=== PATIENT | female | born 1995 | race Caucasian/White ===

== ENCOUNTER 2017-10-20 14:26 | Emergency (ER) | payer SELFPAY ==
[2017-10-20 14:33] VITALS: BP 126/93; PULSE 84; TEMP 99; BMI 24.1
--- NOTE | 2017-10-20 14:33 | PDOC ---
Rapid Medical Evaluation Chief Complaint: Vaginal Bleeding Time Seen by Provider: 10/20/17 14:30 Medical Evaluation: Allergies Allergy/AdvReac Type Severity Reaction Status Date / Time No Known Allergies Allergy Verified 10/20/17 14:27 10/20/17 14:31 I have performed a brief in-person evaluation of this patient. The patient presents with a chief complaint of: vaginal bleeding since yesterday , used adult diapers and have used 7 since yesterday. No abd pain, n/v/f/c. H/o irregular menses, gastritis Pertinent physical exam findings:well bolivar and stable I have ordered the following: upreg,cbc The patient will proceed to the ED for further evaluation
[2017-10-20 14:52] LABS: BASO % 0.7 % (0-2.0); EOS % 3.5 % (0-4.5); HEMATOCRIT 42.8 % (32.4-45.2); HEMOGLOBIN 14.3 GM/dL (10.7-15.3); LYMPH % 35.9 % (8-40); MCH 31.6 pg (25.7-33.7); MCHC 33.5 g/dl (32.0-36.0); MEAN CELL VOLUME 94.3 fl (80-96); MEAN PLT VOLUME 8.4 fl (7.5-11.1); MONO % 11.3 % (3.8-10.2); NEUT % 48.6 % (42.8-82.8); PLATELET COUNT 262 K/MM3 (134-434); RBC 4.53 M/mm3 (3.60-5.2); RDW 12.1 % (11.6-15.6); WHITE BLOOD COUNT 4.4 K/mm3 (4.0-10.0)
--- NOTE | 2017-10-20 15:22 | PDOC ---
History of Present Illness - General Chief Complaint: Vaginal Bleeding Stated Complaint: VAGINAL BLEED Time Seen by Provider: 10/20/17 14:30 History Source: Patient Exam Limitations: No Limitations - History of Present Illness Initial Comments: CHIEF COMPLAINT: 22 y/o afebrile female with PMH of amennorhea c/o heavy vaginal bleeding. HISTORY OF PRESENT ILLNESS: The patient admits she usually gets her period once per year. She started with vaginal bleeding yesterday and states she's been soaking through adult diapers and chucks, ruining her clothing. She does have some minimal abdominal cramping and does admit to passage of small clots. She states she feels weak. She denies f/c, n/v/d, CP, SOB, dizziness. She has been seeing a pediatric Financial Analysis Manager for her issue but never had a resolution. Vital signs on arrival are within normal limits. REVIEW OF SYSTEMS: GENERAL/CONSTITUTIONAL: No fever/chills. +weak. No weight change. HEAD, EYES, EARS, NOSE AND THROAT: No change in vision. No ear pain or discharge. No sore throat. CARDIOVASCULAR: No chest pain or shortness of breath. RESPIRATORY: No cough, wheezing, or hemoptysis. GASTROINTESTINAL: +minimal abdominal cramping. No nausea, vomiting, diarrhea. GENITOURINARY: No dysuria, frequency, or change in urination. MUSCULOSKELETAL: No joint or muscle swelling or pain. No neck or back pain. SKIN: No rash or easy bruising. NEUROLOGIC: No headache, vertigo, loss of consciousness, or loss of sensation. PHYSICAL EXAM: GENERAL: The patient is awake, alert, and fully oriented, in no acute distress. HEAD: Normal with no signs of trauma. ENT: Pupils equal, round and reactive to light, extraocular movements intact, sclera anicteric, conjunctiva clear. Neck supple. LUNGS: Clear to auscultation bilaterally. Normal excursion. No respiratory distress or use of accessory muscles. CV: RRR, S1/S2, no MRG. Cap refill < 2 sec. ABDOMEN: Soft, non-distended, non-tender even to deep palpation, no hepatomegaly or splenomegaly, no masses. VAGINAL: DEFERRED EXTREMITIES: Normal range of motion, no edema. NEUROLOGICAL: Normal speech, normal gait. CN II-XII grossly intact. PSYCH: Normal mood, normal affect. SKIN: Warm, dry, normal turgor, no rashes or lesions noted. Past History - Past Medical History Allergies/Adverse Reactions: Allergies Allergy/AdvReac Type Severity Reaction Status Date / Time No Known Allergies Allergy Verified 10/20/17 14:27 Home Medications: Ambulatory Orders NK [No Known Home Medication] 10/20/17 COPD: No - Immunization History Immunization Up to Date: Yes - Suicide/Smoking/Psychosocial Hx Smoking History: Never smoked *Physical Exam - Vital Signs Last Vital Signs Temp Pulse Resp BP Pulse Ox 99.0 F 84 20 126/93 100 10/20/17 14:28 10/20/17 14:28 10/20/17 14:28 10/20/17 14:28 10/20/17 14:28 ED Treatment Course - LABORATORY CBC & Chemistry Diagram: 10/20/17 14:45 - ADDITIONAL ORDERS Additional order review: Laboratory Results 10/20/17 14:45 Urine HCG, Qual Negative 10/20/17 14:45 RBC 4.53 MCV 94.3 MCHC 33.5 RDW 12.1 MPV 8.4 Neutrophils % 48.6 Lymphocytes % 35.9 Monocytes % 11.3 H Eosinophils % 3.5 Basophils % 0.7 - RADIOLOGY Radiology Studies Ordered: Category Date Time Status TRANSVAGINAL ULTRASOUND US [US] Stat Ultrasound 10/20/17 15:13 Ordered Medical Decision Making - Medical Decision Making A/P: 22 y/o female with heavy vaginal bleeding. Plan is as follows: 1. labs 2. hcg 3. transvaginal ultrasound Transvaginal Ultrasound IMPRESSION: mild nonspecific endometrial thickening is noted which may be physiologic. A small amount of fluid is noted within the uterine cavity presumably representing blood. A nonspecific 2.7x1.5cm hypoechoic structure is seen within the right ovary possibly representing a hemorrhagic cyst. Correlation with 6 week follow up sonography is suggested to document resolution and lack of underlying pathology. Gave patient her results. Provided a copy of her ultrasound and referral to Dr. Chase. Suggested she f/u with Fede as soon as possible and return to the ER with any worsening or concerning symptoms. The patient verbalizes understanding of all instructions, has no further questions and is awaiting discharge. *DC/Admit/Observation/Transfer Diagnosis at time of Disposition: Menorrhagia Qualifiers: Menorrahagia type: with irregular cycle Qualified Code(s): N92.1 - Excessive and frequent menstruation with irregular cycle - Discharge Dispostion Disposition: HOME Condition at time of disposition: Good - Referrals Referrals: Kelly Chase MD [Staff Physician] - - Patient Instructions Printed Discharge Instructions: DI for Menorrhagia Additional Instructions: Discharge Instructions: -Your blood work was normal -Your uterus shows a possible ovarian cyst; you will need a repeat ultrasound in 6 weeks. -Please call Dr. Chase next week and schedule follow up appointment for within 2 weeks -Return to the ER with any worsening or concerning symptoms - Post Discharge Activity
== END 2017-10-20 17:29 | disposition home or self-care (01) ==
LOC: JERFT 14:26
DX: N92.1 Excessive and frequent menstruation with irregular cycle (principal); N83.201 Unspecified ovarian cyst, right side
CPT/HCPCS: 36415; 76830-TC; 84703; 85025; 99281-25

== ENCOUNTER 2018-06-21 21:57 | Emergency (ER) | payer OTHER ==
[2018-06-21 22:01] VITALS: BP 131/71; PULSE 79; TEMP 97.9; BMI 22.6
[2018-06-21] MEDS ORDERED: ONDANSETRON 4 MG/2 ML VIAL IVPUSH ONE (22:25)
[2018-06-21] MEDS ORDERED: ACETAMINOPHEN 1000 MG/100 ML VIAL (NON FORMULARY) IVPB ONE (22:25)
[2018-06-21 22:27] LABS: HCG,QUALITATIVE URINE Negative
[2018-06-21 22:29] LABS: URINE APPEARANCE CLOUDY; URINE BILIRUBIN NEGATIVE (<2.0 mg/dL); URINE COLOR YELLOW; URINE GLUCOSE (UA) NEGATIVE (NEGATIVE); URINE KETONE 1+ (NEGATIVE); URINE LEUK ESTERASE 1+ (NEGATIVE); URINE NITRITE NEGATIVE (NEGATIVE); URINE PROTEIN 1+ (NEGATIVE); URINE UROBILINOGEN NEGATIVE mg/dL (0.2-1.0)
--- NOTE | 2018-06-21 22:29 | PDOC ---
History of Present Illness - General Chief Complaint: Pain, Acute Stated Complaint: STOMACH PAIN - History of Present Illness Initial Comments: The patient is a 22F w/ a history of a R ovarian cyst and irregular menses presents for evaluation of 1d of worsening LLQ abdominal pain. Pain is achy/ cramping, constant/worsening, non-radiating, associated w/ nausea, worsened by movement, and not alleviated by anything that she can identify. She denies having pain like this before. She does not recall her LMP. Denies fevers/chills, HOOPER, vision changes, chest pain, SOB, V/C/D, or changes in sensation. 06/21/18 22:26 Past History - Past Medical History Allergies/Adverse Reactions: Allergies Allergy/AdvReac Type Severity Reaction Status Date / Time No Known Allergies Allergy Verified 10/20/17 14:27 Home Medications: Ambulatory Orders NK [No Known Home Medication] 10/20/17 COPD: No - Immunization History Immunization Up to Date: Yes - Suicide/Smoking/Psychosocial Hx Smoking History: Never smoked Have you smoked in the past 12 months: No Information on smoking cessation initiated: No Hx Alcohol Use: No Drug/Substance Use Hx: No Review of Systems - Review of Systems Able to Perform ROS?: Yes Comments:: GENERAL/CONSTITUTIONAL: No fever or chills. No weakness HEAD, EYES, EARS, NOSE AND THROAT: No change in vision. No ear pain or discharge. No sore throat CARDIOVASCULAR: No chest pain or shortness of breath RESPIRATORY: Denies cough, hemoptysis GASTROINTESTINAL: per HPI GENITOURINARY: No dysuria, frequency, or change in urination MUSCULOSKELETAL: No joint or muscle swelling or pain. No neck or back pain SKIN: No rash NEUROLOGIC: No headache, vertigo, loss of consciousness, or change in strength/ sensation ENDOCRINE: No increased thirst. No abnormal weight change HEMATOLOGIC/LYMPHATIC: No anemia, easy bleeding, or history of blood clots ALLERGIC/IMMUNOLOGIC: No hives or skin allergy 06/21/18 22:42 Is the patient limited Irish proficient: No *Physical Exam - Vital Signs Last Vital Signs Temp Pulse Resp BP Pulse Ox 97.9 F 79 16 131/71 100 06/21/18 21:57 06/21/18 21:57 06/21/18 21:57 06/21/18 21:57 06/21/18 21:57 - Physical Exam Comments: GENERAL: Awake, alert, and fully oriented, in mild distress HEAD: No signs of trauma, normocephalic, atraumatic EYES: PERRLA, EOMI, sclera anicteric, conjunctiva clear ENT: Hearing grossly normal, nares patent, oropharynx clear without exudates. Moist mucosa LUNGS: No distress, speaks full sentences, clear to auscultation bilaterally HEART: Regular rate and rhythm, normal S1 and S2, no murmurs appreciated, peripheral pulses normal and equal bilaterally ABDOMEN: Soft, non-distended, LLQ point TTP w/ rebound, w/o guarding, no masses palpated EXTREMITIES : Normal inspection, Normal range of motion, no edema. No clubbing or cyanosis NEUROLOGICAL: Cranial nerves II through XII grossly intact. Normal speech, no focal sensorimotor deficits SKIN: Warm, Dry Pelvic External genitalia unremarkable Speculum exam with normal appearing, though copious, whitish vaginal discharge Vaginal wall mucosa is unremarkable. Cervix visualized and is unremarkable Bimanual exam without cervical motion tenderness; mild L adnexal tenderness no R adnexal tenderness, no masses appreciated Swabs for testing for gonorrhea, chlamydia obtained. 06/21/18 22:43 Moderate Sedation - Procedure Monitoring Vital Signs: Procedure Monitoring Vital Signs Temperature 97.9 F 06/21/18 21:57 Pulse Rate 79 06/21/18 21:57 Respiratory Rate 16 06/21/18 21:57 Blood Pressure 131/71 06/21/18 21:57 O2 Sat by Pulse Oximetry (%) 100 06/21/18 21:57 ED Treatment Course - RADIOLOGY Radiology Studies Ordered: Category Date Time Status TRANSVAGINAL ULTRASOUND US [US] Stat Ultrasound 06/21/18 22:25 Ordered Medical Decision Making - Medical Decision Making The patient is a 22F w/ a history of R ovarian cyst and irregular menses who presents for evaluation of 1d of worsening focal LLQ abdominal pain Ddx: ovarian cyst, fibroids, UTI/pyelo, nephrolithiasis, ectopic , TOA ED Course UA, UCx, CMP, CBC Transvaginal US Ofirmev, Zofran 06/21/18 22:44 Upreg neg 06/21/18 22:45 UA w/ 3+ blood, 1+LE, 16 WBC and rare bacteria/many yeast -Diflucan 150mg PO once Transvaginal US neg for acute pathology Pain moderately improved s/o Ofirmev Plan for D/C w/ PCP and OBGYN f/u Discharge instructions and return precautions given Patient in agreement and verbalized understanding Dispo: home 06/22/18 00:21 *DC/Admit/Observation/Transfer Diagnosis at time of Disposition: Yeast UTI Abdominal pain Qualifiers: Abdominal location: left lower quadrant Qualified Code(s): R10.32 - Left lower quadrant pain - Discharge Dispostion Disposition: HOME Condition at time of disposition: Stable Decision to Admit order: No - Referrals Referrals: Meghna Martinez MD [Staff Physician] - [facility] [facility] [place] Group] - Patient Instructions Printed Discharge Instructions: DI for Vaginal Yeast Infection Additional Instructions: You were seen in the Emergency Department for evaluation of abdominal pain. You were given diflucan for your urinary yeast infection. You will be call with the results of your cultures if they are positive. Review the handout provided at discharge. Follow up with OB-PHYSICAL EDUCATION [facility]IST and your primary care physician. Return to the Emergency Department if you develop fevers, worsening pain, vomiting, abnormal vaginal bleeding/discharge, pain with urination, blood in your urine, or any new/concerning symptoms. - Post Discharge Activity Forms/Work/School Notes: Back to Work
--- NOTE | 2018-06-21 22:30 | PDOC ---
Attending Attestation - HPI HPI: 06/21/18 22:41 The patient is a 22 year old female with a significant past medical history of right ovarian cyst who presents to the ED complaining of worsening cramping of her lower left quadrant for 1 day. The patient states she is nauseous but denies vomiting. She states that her urine today was darker than usual, and also noted her last bowel movement was today. The patient reports to have taken Midol and Tylenol with mild relief. The patient reports to have an irregular menstrual cycle (1 per year). The patient denies fever chills, vomiting, diarrhea, SOB, and cough. Allergies: NKA <Tom Posada - Last Filed: 06/21/18 22:41> - Resident Resident Name: Pierre Gaxiola - ED Attending Attestation I have performed the following: I have examined & evaluated the patient, The case was reviewed & discussed with the resident, I agree w/resident's findings & plan, Exceptions are as noted - Physicial Exam PE: 06/22/18 04:49 Agree with exam as documented by resident - Medical Decision Making 06/22/18 07:46 eval for preg, sab, cystitis, ascending gu infection, nephrolithiasis, ovaria cyst, toa analgesia f/u labs, tvus <Renard Quiñonez - Last Filed: 06/22/18 07:47>
[2018-06-21 22:52] LABS: EPI CELLS FEW /HPF (FEW); URINE BACTERIA RARE /hpf (NONE SEEN); URINE MUCUS MODERATE; YEAST MANY
[2018-06-21] MEDS ORDERED: ACETAMINOPHEN INJECTION 100 ML IVPB ONE (23:03)
[2018-06-21] MEDS ORDERED: ONDANSETRON 4 MG/2 ML VIAL ONE (23:04)
[2018-06-22] MEDS ORDERED: FLUCONAZOLE 50 MG TABLET PO ONE
[2018-06-22] MEDS ORDERED: FLUCONAZOLE 100 MG TABLET (UD) ONE (00:33)
[2018-06-22] MEDS ORDERED: METOCLOPRAMIDE HCL INJECTION 10 MG/2 ML VIAL IVPUSH ONE (01:22)
[2018-06-22] MEDS ORDERED: KETOROLAC TROMETHAMINE 30 MG/1 ML VIAL IM ONE (01:22)
[2018-06-22] MEDS ORDERED: KETOROLAC TROMETHAMINE 30 MG/1 ML VIAL ONE (01:29)
[2018-06-22] MEDS ORDERED: METOCLOPRAMIDE HCL INJECTION 10 MG/2 ML VIAL ONE (01:29)
== END 2018-06-22 02:33 | disposition home or self-care (01) ==
LOC: JER 21:57
PROC: 3E0233Z Introduction of Anti-inflammatory into Muscle, Percutaneous Approach (ICD-10-PCS; principal; 2018-06-21)
PROC: 3E033GC Introduction of Other Therapeutic Substance into Peripheral Vein, Percutaneous Approach (ICD-10-PCS; 2018-06-21)
PROC: 3E033GC Introduction of Other Therapeutic Substance into Peripheral Vein, Percutaneous Approach (ICD-10-PCS; 2018-06-21)
PROC: 3E033NZ Introduction of Analgesics, Hypnotics, Sedatives into Peripheral Vein, Percutaneous Approach (ICD-10-PCS; 2018-06-21)
DX: B37.49 Other urogenital candidiasis (principal)
CPT/HCPCS: 36415; 76830-TC; 81003; 81015; 84703; 87086; 87491; 87591; 99283-25; J0131

== ENCOUNTER 2020-12-26 09:57 | Emergency (ER) | payer BC, OTHER ==
[2020-12-26 10:12] VITALS: BP 121/76; PULSE 72; TEMP 98.6; BMI 21.7
[2020-12-26] MEDS ORDERED: predniSONE 1 MG TABLET (FP) PO ONE (11:15)
[2020-12-26] MEDS ORDERED: predniSONE 10 MG TABLET (UD) ONE (11:17)
[2020-12-26] MEDS ORDERED: predniSONE 20 MG TABLET (UD) ONE (11:18)
[2020-12-27 18:06] LABS: SARS-CoV-2 NAA Detected (Not Detected)
== END 2020-12-26 11:29 | disposition home or self-care (01) ==
LOC: JERFT 09:57 → JER 09:57 → JERFT 11:29
PROC: 3E023NZ Introduction of Analgesics, Hypnotics, Sedatives into Muscle, Percutaneous Approach (ICD-10-PCS; principal; 2020-12-26)
DX: R22.0 Localized swelling, mass and lump, head (principal)
CPT/HCPCS: 87880; 99284-25; C9803; U0003; U0005

== ENCOUNTER 2021-12-18 15:45 | Emergency (ER) | payer BC, OTHER ==
[2021-12-18 16:06] VITALS: BP 112/73; PULSE 88; RESP 18; TEMP 98.4; BMI 21.6
[2021-12-18] MEDS ORDERED: SODIUM CHLORIDE 1,000 ML IV STA (17:26)
[2021-12-18] MEDS ORDERED: ACETAMINOPHEN 1000 MG/100 ML BAG IVPB ONE (17:26)
[2021-12-18] MEDS ORDERED: ACETAMINOPHEN INJECTION 100 ML IVPB ONE (17:32)
[2021-12-18 18:29] LABS: BASO % 0.7 % (0-2.0); EOS % 1.8 % (0-4.5); HEMOGLOBIN 14.9 GM/dL (10.7-15.3); LYMPH % 23.6 % (8-40); MCH 32.4 pg (25.7-33.7); MCHC 33.2 g/dl (32.0-36.0); MEAN CELL VOLUME 97.6 fl (80-96); MEAN PLT VOLUME 8.6 fl (7.5-11.1); MONO % 10.4 % (3.8-10.2); NEUT % 63.5 % (42.8-82.8); PLATELET COUNT 268 10^3/uL (134-434); RBC 4.61 M/mm3 (3.60-5.2); WHITE BLOOD COUNT 6.1 K/mm3 (4.0-10.0)
[2021-12-18 18:38] LABS: CALCIUM 9.5 mg/dL (8.5-10.1); HCG,QUALITATIVE URINE Negative
[2021-12-18 18:39] LABS: ALBUMIN 4.2 g/dl (3.4-5.0); BLOOD UREA NITROGEN 11.9 mg/dL (7-18); EPI CELLS 4 /uL (0-25.1); HYALINE CASTS 0 /uL (0-3.1); PH,URINE 5.5 (5.0-8.0); URINE APPEARANCE CLEAR; URINE BACTERIA 8 /uL (0-1359); URINE BILIRUBIN NEGATIVE (NEGATIVE); URINE COLOR YELLOW; URINE GLUCOSE (UA) NEGATIVE (NEGATIVE); URINE KETONE NEGATIVE (NEGATIVE); URINE LEUK ESTERASE NEGATIVE (NEGATIVE); URINE NITRITE NEGATIVE (NEGATIVE); URINE PROTEIN NEGATIVE (NEGATIVE); URINE RBC 1853 /uL (0-23.9); URINE UROBILINOGEN 0.2 mg/dL (0.2-1.0); URINE WBC 8 /uL (0-25.8)
[2021-12-18 18:42] LABS: CREATININE 0.7 mg/dL (0.55-1.3)
[2021-12-18 18:43] LABS: BILIRUBIN,TOTAL 0.8 mg/dL (0.2-1); TOT PROT 7.4 g/dl (6.4-8.2)
== END 2021-12-18 19:42 | disposition home or self-care (01) ==
LOC: JERFT 15:45 → JER 15:45 → JERFT 19:42
PROC: 3E033NZ Introduction of Analgesics, Hypnotics, Sedatives into Peripheral Vein, Percutaneous Approach (ICD-10-PCS; principal; 2021-12-18)
PROC: 3E0337Z Introduction of Electrolytic and Water Balance Substance into Peripheral Vein, Percutaneous Approach (ICD-10-PCS; 2021-12-18)
DX: N92.0 Excessive and frequent menstruation with regular cycle (principal)
CPT/HCPCS: 36415; 76830-TC; 80053; 81003; 84703; 85025; 87086; 99284-25

== ENCOUNTER 2023-10-03 07:37 | Emergency (ER) | payer BC, OTHER ==
[2023-10-03 07:58] VITALS: BMI 24.0
[2023-10-03] MEDS ORDERED: ACETAMINOPHEN INJECTION 100 ML IVPB ONE (08:55)
[2023-10-03] MEDS ORDERED: ONDANSETRON 4 MG/2 ML VIAL ONE (08:55)
[2023-10-03] MEDS ORDERED: FAMOTIDINE 10 MG/ML VIAL IVPB ONE (08:58)
[2023-10-03] MEDS: ONDANSETRON 4 MG/2 ML VIAL IVPUSH ONE (09:08)
[2023-10-03] MEDS: ACETAMINOPHEN 1000 MG/100 ML BAG IVPB ONE (09:10)
[2023-10-03] MEDS: SODIUM CHLORIDE 0.9% 500 ML INFUS.BAG IV ONE (09:10)
[2023-10-03] MEDS: FAMOTIDINE 20 MG/50 ML IVPB 20 MG/50 ML MG IVPB ONE (09:15)
[2023-10-03 09:46] LABS: HEMATOCRIT 44.8 % (32.4-45.2); HEMOGLOBIN 15.4 GM/dL (10.7-15.3); MCH 32.3 pg (25.7-33.7); MCHC 34.3 g/dl (32.0-36.0); MEAN CELL VOLUME 94.2 fl (80-96); MEAN PLT VOLUME 8.4 fl (7.5-11.1); PLATELET COUNT 227 10^3/uL (134-434); RBC 4.75 M/mm3 (3.60-5.2); RDW 11.8 % (11.6-15.6); WHITE BLOOD COUNT 4.2 K/mm3 (4.0-10.0)
[2023-10-03 10:05] LABS: POTASSIUM 3.8 mmol/L (3.5-5.1)
[2023-10-03 10:07] LABS: ALBUMIN 3.5 g/dl (3.4-5.0)
[2023-10-03 10:08] LABS: BLOOD UREA NITROGEN 11.3 mg/dL (7-18); MAGNESIUM 2.1 mg/dL (1.8-2.4)
[2023-10-03 10:11] LABS: CREATININE 0.7 mg/dL (0.55-1.3)
[2023-10-03 10:12] LABS: BILIRUBIN,TOTAL 0.5 mg/dL (0.2-1); TOT PROT 6.8 g/dl (6.4-8.2)
[2023-10-03 10:38] VITALS: BP 108/69; PULSE 70; RESP 18; TEMP 98.6
== END 2023-10-03 10:38 | disposition home or self-care (01) ==
LOC: JER 07:37
PROC: 3E033GC Introduction of Other Therapeutic Substance into Peripheral Vein, Percutaneous Approach (ICD-10-PCS; principal; 2023-10-03)
PROC: 3E030NZ Introduction of Analgesics, Hypnotics, Sedatives into Peripheral Vein, Open Approach (ICD-10-PCS; 2023-10-03)
PROC: 3E030GC Introduction of Other Therapeutic Substance into Peripheral Vein, Open Approach (ICD-10-PCS; 2023-10-03)
DX: R11.10 Vomiting, unspecified (principal); R19.7 Diarrhea, unspecified; R10.13 Epigastric pain
CPT/HCPCS: 36415; 80053; 83690; 83735; 84703; 85025; 99284-25; J0131

== ENCOUNTER 2024-11-13 07:07 | Emergency (ER) | payer BC, OTHER ==
[2024-11-13 07:14] VITALS: RESP 18; BMI 23.7
[2024-11-13] MEDS ORDERED: ONDANSETRON 4 MG/2 ML VIAL ONE (08:05)
[2024-11-13] MEDS: SODIUM CHLORIDE 1,000 ML IV STA (08:28)
[2024-11-13] MEDS: ONDANSETRON 4 MG/2 ML VIAL IVPUSH ONE (08:28)
[2024-11-13 08:33] LABS: ABSOLUTE IMMATURE GRANULOCYTES 0.04 x10^3/uL (0.0-0.031); BASOPHILS # 0.02 x10^3/uL (0.01-0.08); HEMATOCRIT 46.2 % (34.1-44.9); HEMOGLOBIN 15.4 g/dL (11.2-15.7); MCHC 33.3 g/dl (32.2-35.5); MEAN CELL VOLUME 95.7 fl (79.4-94.8); MEAN PLT VOLUME 9.7 fl (9.4-12.3); MONOCYTE # 0.99 x10^3/uL (0.24-0.86); MONOCYTE % 9.5 % (4.7-12.5); PLATELET COUNT 223 x10^3/uL (182-369); RDW 10.8 % (12.1-16.5)
[2024-11-13 08:36] LABS: EPI CELLS 30 /uL (0-25.1); HYALINE CASTS 2 /uL (0-3.1); URINE APPEARANCE CLEAR; URINE BACTERIA 578 /uL (0-1359); URINE BILIRUBIN NEGATIVE (NEGATIVE); URINE COLOR YELLOW; URINE GLUCOSE (UA) NEGATIVE (NEGATIVE); URINE KETONE 4+ (NEGATIVE); URINE LEUK ESTERASE NEGATIVE (NEGATIVE); URINE NITRITE NEGATIVE (NEGATIVE); URINE PROTEIN 1+ (NEGATIVE); URINE RBC 25 /uL (0-23.9); URINE WBC 20 /uL (0-25.8)
[2024-11-13] MEDS ORDERED: ACETAMINOPHEN INJECTION 100 ML ONE (08:56)
[2024-11-13] MEDS ORDERED: FAMOTIDINE 20 MG/50 ML IVPB 20 MG/50 ML MG IVPB ONE (08:56)
[2024-11-13 08:59] LABS: CALCIUM 9.3 mg/dL (8.5-10.1); POTASSIUM 3.7 mmol/L (3.5-5.1)
[2024-11-13 09:00] LABS: BLOOD UREA NITROGEN 10.6 mg/dL (7-18)
[2024-11-13] MEDS: ACETAMINOPHEN 500 MG TABLET (FP) PO ONE (09:02)
[2024-11-13] MEDS: FAMOTIDINE 20 MG/50 ML IVPB 20 MG/50 ML MG IVPB ONE (09:02)
[2024-11-13 09:03] LABS: CREATININE 0.8 mg/dL (0.55-1.3)
[2024-11-13 09:04] LABS: BILIRUBIN,TOTAL 0.6 mg/dL (0.2-1)
[2024-11-13 09:05] LABS: TOT PROT 7.2 g/dl (6.4-8.2)
[2024-11-13] MEDS: DEXTROSE 5%-NORMAL SALINE 1,000 ML IV ONE (10:29)
[2024-11-13 12:09] VITALS: BP 110/67; PULSE 77; TEMP 98.1
[2024-11-13 16:09] LABS: HCV DIAGNOSTIC IN-HOUSE W/RFLX NON-REACTIVE (NONREACTIVE)
[2024-11-13 16:10] LABS: HIV INTERPRETATION NEGATIVE (NEGATIVE)
== END 2024-11-13 12:20 | disposition home or self-care (01) ==
LOC: JER 07:07
PROC: 3E033GC Introduction of Other Therapeutic Substance into Peripheral Vein, Percutaneous Approach (ICD-10-PCS; principal; 2024-11-13)
PROC: 3E033GC Introduction of Other Therapeutic Substance into Peripheral Vein, Percutaneous Approach (ICD-10-PCS; 2024-11-13)
PROC: 3E0337Z Introduction of Electrolytic and Water Balance Substance into Peripheral Vein, Percutaneous Approach (ICD-10-PCS; 2024-11-13)
PROC: 3E0337Z Introduction of Electrolytic and Water Balance Substance into Peripheral Vein, Percutaneous Approach (ICD-10-PCS; 2024-11-13)
DX: K52.9 Noninfective gastroenteritis and colitis, unspecified (principal); B34.9 Viral infection, unspecified; R10.13 Epigastric pain; M79.10 Myalgia, unspecified site; R50.9 Fever, unspecified; R51.9 Headache, unspecified; R11.2 Nausea with vomiting, unspecified; J02.9 Acute pharyngitis, unspecified
CPT/HCPCS: 0241U-QW; 36415; 80053; 81003; 83690; 84703; 85025; 86803; 87086; 87389; 99284-25

== ENCOUNTER 2024-11-15 08:24 | Observation (INO) | payer BC, OTHER ==
[2024-11-15 09:26] LABS: PH,URINE 8.5 (5.0-8.0); URINE APPEARANCE CLOUDY; URINE BILIRUBIN NEGATIVE (NEGATIVE); URINE COLOR YELLOW; URINE GLUCOSE (UA) NEGATIVE (NEGATIVE); URINE KETONE TRACE (NEGATIVE); URINE LEUK ESTERASE NEGATIVE (NEGATIVE); URINE NITRITE NEGATIVE (NEGATIVE); URINE PROTEIN TRACE (NEGATIVE); URINE UROBILINOGEN 0.2 mg/dL (0.2-1.0)
[2024-11-15] MEDS ORDERED: ACETAMINOPHEN INJECTION 100 ML ONE (09:31)
[2024-11-15] MEDS ORDERED: FAMOTIDINE 20 MG/50 ML IVPB 20 MG/50 ML MG IVPB ONE (09:31)
[2024-11-15] MEDS ORDERED: ONDANSETRON 4 MG/2 ML VIAL ONE (09:31)
[2024-11-15 09:54] LABS: THROAT:GRP A STREP NOT DETECTED (NOTDETECTED)
[2024-11-15] MEDS: ONDANSETRON 4 MG/2 ML VIAL IVPUSH ONE (10:10)
[2024-11-15] MEDS: SODIUM CHLORIDE 0.9% 500 ML INFUS.BAG IV ONE ×2 (10:10→12:42)
[2024-11-15] MEDS: FAMOTIDINE 20 MG/50 ML IVPB 20 MG/50 ML MG IVPB ONE (10:15)
[2024-11-15] MEDS: ACETAMINOPHEN 1000 MG/100 ML BAG IVPB ONE (10:15)
[2024-11-15 10:27] LABS: ABSOLUTE IMMATURE GRANULOCYTES 0.03 x10^3/uL (0.0-0.031); BASOPHILS # 0.01 x10^3/uL (0.01-0.08); HEMATOCRIT 42.2 % (34.1-44.9); HEMOGLOBIN 14.2 g/dL (11.2-15.7); MCHC 33.6 g/dl (32.2-35.5); MEAN CELL VOLUME 94.8 fl (79.4-94.8); MEAN PLT VOLUME 10.1 fl (9.4-12.3); MONOCYTE # 1.14 x10^3/uL (0.24-0.86); MONOCYTE % 13.2 % (4.7-12.5); PLATELET COUNT 196 x10^3/uL (182-369); RDW 10.6 % (12.1-16.5)
[2024-11-15 10:51] LABS: POTASSIUM 4.1 mmol/L (3.5-5.1)
[2024-11-15 10:53] LABS: CALCIUM 9.4 mg/dL (8.5-10.1)
[2024-11-15 10:54] LABS: ALBUMIN 3.7 g/dl (3.4-5.0); BLOOD UREA NITROGEN 6.4 mg/dL (7-18)
[2024-11-15 10:56] LABS: CREATININE 0.7 mg/dL (0.55-1.3)
[2024-11-15 10:58] LABS: BILIRUBIN,TOTAL 0.6 mg/dL (0.2-1); TOT PROT 6.9 g/dl (6.4-8.2)
[2024-11-15] MEDS ORDERED: morphine SULFATE 4 MG/ML VIAL ONE (12:35)
[2024-11-15] MEDS: morphine CARPU-JECT 4 MG/1 ML DISP.SYRIN IVPUSH ONE (12:42)
[2024-11-15 14:52] VITALS: BMI 24.5
[2024-11-15] MEDS: LACTATED RINGERS SOLUTION 1,000 ML/1,000 ML INFUS.BAG IV SCH (15:58)
[2024-11-15] MEDS: ONDANSETRON 4 MG/2 ML VIAL IVPUSH PRN (20:01)
[2024-11-15] MEDS: FAMOTIDINE 20 MG/50 ML IVPB 20 MG/50 ML MG IVPB SCH (21:01)
[2024-11-16 08:20] LABS: HEMATOCRIT 38.9 % (34.1-44.9); HEMOGLOBIN 12.8 g/dL (11.2-15.7); MCHC 32.9 g/dl (32.2-35.5); MEAN CELL VOLUME 94.9 fl (79.4-94.8); MEAN PLT VOLUME 10.6 fl (9.4-12.3); PLATELET COUNT 192 x10^3/uL (182-369); RDW 10.9 % (12.1-16.5)
[2024-11-16 08:35] LABS: POTASSIUM 4.2 mmol/L (3.5-5.1)
[2024-11-16 08:43] LABS: CALCIUM 9.1 mg/dL (8.5-10.1)
[2024-11-16 08:44] LABS: ALBUMIN 3.1 g/dl (3.4-5.0); BLOOD UREA NITROGEN 5.3 mg/dL (7-18); MAGNESIUM 1.7 mg/dL (1.8-2.4)
[2024-11-16 08:47] LABS: CREATININE 0.7 mg/dL (0.55-1.3); PHOSPHOROUS 3.4 mg/dL (2.5-4.9)
[2024-11-16 08:49] LABS: BILIRUBIN,TOTAL 0.4 mg/dL (0.2-1); TOT PROT 5.9 g/dl (6.4-8.2)
[2024-11-16 15:01] VITALS: RESP 18
[2024-11-16] MEDS: LACTATED RINGERS SOLUTION 1,000 ML/1,000 ML INFUS.BAG IV SCH (15:48)
[2024-11-16] MEDS: MAG HYDROX/ALH/SMC/DPHA/LIDO 240 ML MOUTHWASH MM SCH (17:10)
[2024-11-16] MEDS: KETOROLAC TROMETHAMINE 15 MG/ML VIAL IVPUSH PRN (19:48)
[2024-11-16 19:51] VITALS: TEMP 99
[2024-11-17 07:19] LABS: ABSOLUTE IMMATURE GRANULOCYTES 0.02 x10^3/uL (0.0-0.031); BASOPHILS # 0.01 x10^3/uL (0.01-0.08); EOSINOPHIL % 0.7 % (0.7-5.8); EOSINOPHILS # 0.05 x10^3/uL (0.04-0.36); HEMATOCRIT 38.7 % (34.1-44.9); HEMOGLOBIN 12.8 g/dL (11.2-15.7); MCHC 33.1 g/dl (32.2-35.5); MEAN CELL VOLUME 95.1 fl (79.4-94.8); MONOCYTE # 1.23 x10^3/uL (0.24-0.86); MONOCYTE % 18.1 % (4.7-12.5); PLATELET COUNT 201 x10^3/uL (182-369); RDW 10.7 % (12.1-16.5)
[2024-11-17 07:33] LABS: POTASSIUM 3.7 mmol/L (3.5-5.1)
[2024-11-17 07:36] LABS: CALCIUM 9.1 mg/dL (8.5-10.1)
[2024-11-17 07:37] LABS: ALBUMIN 3.1 g/dl (3.4-5.0)
[2024-11-17 07:40] LABS: CREATININE 0.7 mg/dL (0.55-1.3)
[2024-11-17 07:41] LABS: BILIRUBIN,TOTAL 0.4 mg/dL (0.2-1)
[2024-11-17 11:15] VITALS: BP 126/82; PULSE 64
== END 2024-11-17 16:29 | disposition home or self-care (01) ==
LOC: JER 08:24 → UNDOADMOB 12:35 → INTOOBSV 12:35 → JERBED 12:35 → J5S 14:38
PROVIDERS: ADMIT Internal Medicine
PROC: 3E033GC Introduction of Other Therapeutic Substance into Peripheral Vein, Percutaneous Approach (ICD-10-PCS; principal; 2024-11-15)
PROC: 3E0333Z Introduction of Anti-inflammatory into Peripheral Vein, Percutaneous Approach (ICD-10-PCS; 2024-11-15)
PROC: 3E0337Z Introduction of Electrolytic and Water Balance Substance into Peripheral Vein, Percutaneous Approach (ICD-10-PCS; 2024-11-15)
PROC: 3E033NZ Introduction of Analgesics, Hypnotics, Sedatives into Peripheral Vein, Percutaneous Approach (ICD-10-PCS; 2024-11-15)
DX: N21.0 Calculus in bladder (principal); N28.1 Cyst of kidney, acquired; R74.01 Elevation of levels of liver transaminase levels; E28.2 Polycystic ovarian syndrome; Z90.49 Acquired absence of other specified parts of digestive tract; F17.200 Nicotine dependence, unspecified, uncomplicated; Z96.89 Presence of other specified functional implants; K29.70 Gastritis, unspecified, without bleeding
CPT/HCPCS: 0241U-QW; 36415; 71046-TC-FY; 74177-TC; 76705-TC; 80053; 81003; 83690; 83735; 84100; 84703; 85025; 85027; 86308; 86705; 87086; 87491; 87522; 87591; 87651; 87661; 99285-25; G0378